=== PATIENT | male | born 1990 | race Caucasian/White ===

== ENCOUNTER 2018-04-01 06:15 | Day surgery (SDC) | payer OTHER, SELFPAY ==
[2018-03-22 09:03] VITALS: BMI 25.8
[2018-04-01] VITALS (11 sets, daily range): BP systolic 99–142; BP diastolic 62–98; PULSE 57–87; RESP 10–21; TEMP 36.5–37.4; O2SAT 97–100; BMI 24.2
--- NOTE | 2018-04-01 | DI.RAD.S_ITS ---
PROCEDURE: XR TIBIA FUBULA RT 2V INDICATIONS: RIGHT TIBIAL MARIBEL REMOVAL TECHNIQUE: 2 views of the tibia and fibula were acquired. [facility] [place] TIBIA FIBULA RIGHT, 02/20/2018, 10:56. FINDINGS: 3 spot fluoroscopic intraoperative images demonstrating removal of tibial intramedullary maribel Dictated by: Jose Forrester M.D. on 04/01/2018 at 11:05 Approved by: oJse Forrester M.D. on 04/01/2018 at 11:06
[2018-04-01] MEDS: LACTATED RINGERS 1,000 ML 42 ML IV (07:03)
[2018-04-01] MEDS: MIDAZOLAM 2 MG/2 ML VIAL IV (07:37)
--- NOTE | 2018-04-01 07:41 | PM.PREOP ---
Pre-operative Note Interval Note Pre-op Check: Yes History & Physical Reviewed by Physician and Yes Exam Performed Changes: No
--- NOTE | 2018-04-01 07:49 | SUR.PREOP ---
Block start time [0737] . Monitoring initiated and maintained throughout procedure. Oxygen and medications given per anesthesiologist instructions. Patient remained stable throughout procedure, no adverse reactions noted. Block end time [0746]. pt taken into or after completion of block by circulating rn. pt left pre-op area in stable condition, vss and talking to staff.
[2018-04-01] MEDS: CEFAZOLIN VIAL 1 GM in SODIUM CHLORIDE 0.9% 100 ML 200 ML IV (08:00)
--- NOTE | 2018-04-01 08:48 | SUR.OPER ---
Left leg in padded yellow fin stirrup, arthroscopy leg flores to right thigh on padded OR bed, head on pillow, arms secured on padded arm boards at <90 degrees abduction.
--- NOTE | 2018-04-01 09:23 | PM.PROC.1 ---
Procedures Date/Time Date of procedure: 04/01/18 Time of procedure: 07:26 Nerve Block Time out performed: Yes Local anesthetic used: lidocaine 2% (with epi and 15mL of 0.5% ropivacaine) Location of anesthetic used: femoral nerve Amount of anesthesia used (mL): 20 Nerve blocks: femoral Procedure successful: Yes Patient tolerated procedure: well Complications: none Additional comments: Femoral nerve block for post operative pain management as discussed with surgeon. R/B discussed. Site marked. Consent verified/signed. Standard ASA monitors. NC O2. Chloroprep. Sterile technique. Femoral A/V/N identified at inguinal fold with US. Lidocaine skin wheal. 50mm x 22g Pajunk needle advanced with in-plane US guidance. Negative aspiration. Good LA spread noted on US. Negative aspiration throughout. No pain, no paresthesia with injection. VSS. Tolerated well. To OR.
--- NOTE | 2018-04-01 09:26 | P.PCN_ITS ---
Procedures Date/Time Date of procedure: 04/01/18 Time of procedure: 07:26 Nerve Block Time out performed: Yes Local anesthetic used: lidocaine 2% (with epi and 15mL of 0.5% ropivacaine) Location of anesthetic used: femoral nerve Amount of anesthesia used (mL): 20 Nerve blocks: femoral Procedure successful: Yes Patient tolerated procedure: well Complications: none Additional comments: Femoral nerve block for post operative pain management as discussed with surgeon. R/B discussed. Site marked. Consent verified/signed. Standard ASA monitors. NC O2. Chloroprep. Sterile technique. Femoral A/V/ N identified at inguinal fold with US. Lidocaine skin wheal. 50mm x 22g Pajunk needle advanced with in-plane US guidance. Negative aspiration. Good LA spread noted on US. Negative aspiration throughout. No pain, no paresthesia with injection. VSS. Tolerated well. To OR.
--- NOTE | 2018-04-01 10:40 | PM.OP.1 ---
Operative Date/Time/Diagnoses Date of procedure: 04/01/18 Time of procedure: 10:10 Pre-op diagnosis: 1. ACL insufficiency, right knee 2. Retained intramedullary altagracia right knee Post-op diagnosis: same Procedure & Clinicians Procedure: Removal of intramedullary altagracia and four interlock screws with allografting of the altagracia defect in the tibial metaphysis Same procedure as scheduled: No (The ACL reconstruction was postponed due to the large proximal tibial defect created by altagracia removal.) Indications: The patient is a 27-year-old gentleman who is previously had both a tibial fracture and an ACL injury in separate injuries. He has had continued instability of the right knee and requested ACL reconstruction. The presence of the altagracia makes tibial tunnel placement impossible. He was scheduled for removal of the altagracia and immediate progression to ACL reconstruction after discussion the risks benefits alternatives. Risks discussed included but were not limited to: Need to conclude the procedure after the altagracia removal for any reason, fracture with removal of the altagracia, infection, nerve damage, deep venous thrombosis, pulmonary embolism, stroke, myocardial infarction, permanent paralysis and . Surgeon: David Lees Final Rail Cutter: Hannah Alves Click Yes if Unassisted: No Anesthesia Type: General, Peripheral nerve block and Local Operative Notes Findings: Extremely difficult altagracia removal with multiple screws that had strong interference fit with the altagracia itself evidenced by stripping of the screw threads. There was a large proximal tibial defect after removal of the altagracia which I felt would best be addressed by allografting and staged ACL reconstruction rather than attempting to directly perform the ACL reconstruction. Closure Type: primary Specimen(s): none sent Implants & Drains: No implants placed, de Puy intramedullary nail and 4 screws were removed. Estimated Blood Loss (mL): 500 Blood products transfused: none Tourniquet time (min): 0 Procedure in detail: The patient was seen in the preoperative area where he identified his right knee as the operative site this was marked with my initials. He received preoperative antibiotics with an appropriate 1st generation cephalosporin and was taken to the operating room and placed on the operating room table in a supine position. He had previously undergone a femoral nerve block in the preoperative area. He underwent a general anesthetic in the operating room. His knee was examined under anesthesia with findings of a grade 3 pivot shift and a grade 3 Nicolas's. A tourniquet was placed about his proximal right thigh. His right leg was placed in the arthroscopic leg flores. His left leg was placed in a stirrup to maneuver it out of the way of fluoroscopy. His right leg was prepared from the toes to the tourniquet with ChloraPrep in the usual fashion through sterile drapes. The distal medial interlock screw was 1st addressed. This the was approached through the previous stab wound incision. The screw head was identified and the screwdriver placed. This was extremely difficult to remove and eventually the screwdriver stripped the screw head. The difficult screw removal set was opened and the conical reverse threaded head was inserted and used to remove the screw. The distal anterior screw was then removed. The proximal medial screw was removed without difficulty. We then turned our attention to the proximal end of the altagracia. The insertion incision was opened again and carried into the knee medial to the patellar tendon. Using fluoroscopy the proximal end of the altagracia was identified. Defect was created in the proximal tibia overlying the altagracia and curettes, osteotomes and the pituitary rongeur were used to remove bone until the proximal end of the altagracia was satisfactorily exposed. At this point I attempted to thread the insertion device into the altagracia. This was unsuccessful so the conical screw device was inserted instead. This eventually did have enough purchase to remove the altagracia. We then turned our attention to the final interlock screw. This also was essentially impossible to remove as the screw flatbed driver of was impossible to turn. We used a coring Reamer to loosen the screw head from the underlying cortex and then the screwdriver was able to remove the screw. The slap hammer was then used to remove the altagracia. Fluoroscopy was used to confirm there was no iatrogenic damage to the tibia with removal of the altagracia. All the wounds were irrigated. Given the significant defect of the proximal tibia that was required to access the altagracia I did not feel that we would have an appropriate tibial tunnel for ACL reconstruction and therefore I elected to allograft this defect to allow later ACL reconstruction. Allograft was impacted into the tibial altagracia defect. Wound was irrigated. The joint capsule was closed with running 0 Vicryl. The subcutaneous layer with 3 0 Vicryl. All wounds were then closed with jhonatan including the interlock screw wounds. 0.5% Marcaine with epinephrine was then injected into the fat pad and all incisions in the subcutaneous tissue to provide postoperative pain control. Dressings of Xeroform, sterile 4x4s cast padding and an Bob wrap were applied the patient was transported to the recovery room in good condition having tolerated procedure well. Complications: none Condition: stable Disposition: PACU Plan for aftercare: The patient will be maintained with crutches for comfort but weight-bearing as tolerated. We will monitor the incorporation of the graft with x-ray but anticipate in 8-12 weeks he should be ready to have an ACL reconstruction. He will likely be discharged today provided he has adequate pain control.
[2018-04-01] MEDS: OXYCODONE IR 5 MG TABLET PO (11:03)
--- NOTE | 2018-04-01 11:30 | SUR.PHASEII ---
PT ARRIVED TO PHASE II VIA BED. PT SITTING UP IN BED AND TALKING TO RN. IV SITE CLEAR. OPERATIVE LEG DRSG OBSERVED TO BE C/D/I. PT ABLE TO MOVE OPERATIVE FOOT, +PULSE, DULL SENSTATION RELATED TO PRE OP BLOCK, WARM TO TOUCH AND PINK/PREP STAIN IN COLOR. PT DRINKING WATER AND EATING CRACKERS. PT DENIES ANY PAIN/DISCOMFORT OR NAUSEA. PT AWAITING ARRIVAL OF FATHER FOR TRANSPORT HOME. BED IN LOWEST POSITION AND CALL LIGHT GIVEN TO PT. PT APPEARS COMFORTABLE AT THIS TIME.
== END 2018-04-01 11:44 | disposition home or self-care (01) ==
LOC: OR 06:19 → AC 06:20
PROVIDERS: Visit Provider Orthopaedic Surgery
PROC: (CPT 20680; principal; 2018-04-01 07:45)
DX: S83.511A Sprain of anterior cruciate ligament of right knee, initial encounter (principal); S82.231D Displaced oblique fracture of shaft of right tibia, subsequent encounter for closed fracture with routine healing; X50.1XXA Overexertion from prolonged static or awkward postures, initial encounter; Z96.7 Presence of other bone and tendon implants; F17.210 Nicotine dependence, cigarettes, uncomplicated; G89.18 Other acute postprocedural pain
CPT/HCPCS: 20680; 64447; 64450; 73590; 76001; J0690; J1100; J2250; J2405; J2704; J3010